=== PATIENT | female | born 1990 | race Caucasian/White ===

== ENCOUNTER 2018-12-24 22:44 | Inpatient (IN) | payer OTHER ==
[~2018-12-24] VITALS: Ht 162.6 cm; Wt 76.7 kg
[2018-12-24] MEDS ORDERED: OXYTOCIN 30 UNITS/LACT RINGERS 500 ML IV PRN (23:25)
[2018-12-24] MEDS ORDERED: OXYTOCIN 30 UNITS/LACT RINGERS 500 ML IV ONE (23:25)
[2018-12-24] MEDS ORDERED: RINGERS SOLUTION,LACTATED 1,000 ML IV PRN (23:25)
[2018-12-24] MEDS ORDERED: METOCLOPRAMIDE HCL 5 MG/ML 2 ML VIAL IVP PRN (23:30)
[2018-12-24] MEDS ORDERED: FentaNYL CITRATE-PF 100 MCG/2 ML VIAL IVP PRN (23:30)
[2018-12-24] MEDS ORDERED: CITRIC ACID/SODIUM CITRATE 30 ML SOLUTION UDCUP PO PRN (23:30)
[2018-12-24 23:55] VITALS: BP 121/74
[2018-12-25 00:08] LABS: BASOPHILS % (AUTO) 0.2 % (0.0-2.0); EOSINOPHILS % (AUTO) 1.4 % (1.0-6.0); HEMOGLOBIN 11.2 g/dL (12.0-16.0); LYMPHOCYTES # (AUTO) 2.3 K/uL (1.0-4.8); LYMPHOCYTES % (AUTO) 28.6 % (22.0-44.0); MEAN CORPUSCULAR HEMOGLOBIN 29.7 pg (26.0-34.0); MEAN CORPUSCULAR HGB CONC 33.9 G/dL (31.0-37.0); MEAN CORPUSCULAR VOLUME 88 fL (80-100); MONOCYTES % (AUTO) 12.1 % (2.0-9.0); NEUTROPHILS # (AUTO) 4.7 K/uL (1.8-7.7); NEUTROPHILS % (AUTO) 57.7 % (40.0-70.0); PLATELET COUNT (AUTO)-OB 176 K/uL (150-450); RED BLOOD CELL COUNT(AUTO) 3.76 MIL/uL (4.00-5.20); RED CELL DISTRIBUTION WIDTH 14.6 % (11.5-14.5)
[2018-12-25] MEDS ORDERED: calcium supplement PO (00:15)
[2018-12-25] MEDS ORDERED: PNV1TABL54 PO (00:15)
[2018-12-25] MEDS: RINGERS SOLUTION,LACTATED 1,000 ML IV SCH ×4 (00:32→17:48)
[2018-12-25] MEDS ORDERED: OXYGEN THERAPY IH SCH (08:00)
[2018-12-25] MEDS ORDERED: MINERAL OIL/PETROLAT,WHT/WATER LOTION 177 ML BOTTLE TP ONE (12:45)
[2018-12-25] MEDS ORDERED: MINERAL OIL 30 ML UDCUP VG ONE (12:45)
[2018-12-25] MEDS ORDERED: ROPIVACAINE HCL/PF 0.2% 100 ML ED ONE ×2 (15:16→16:50)
[2018-12-25] MEDS ORDERED: BUPIVACAINE HCL/PF 0.25% 10 ML VIAL ONE (15:16)
[2018-12-25] MEDS ORDERED: LIDOCAINE/PF 2% 5 ML VIAL ONE (16:50)
[2018-12-25] MEDS ORDERED: ROPIVACAINE HCL/PF 0.2% 100 ML ED PRN (17:15)
[2018-12-25] MEDS ORDERED: DiphenhydrAMINE HCL 50 MG/ML VIAL IVP PRN (17:15)
[2018-12-25] MEDS ORDERED: NALBUPHINE HCL 10 MG/ML VIAL IVP PRN (17:15)
[2018-12-25] MEDS ORDERED: ONDANSETRON HCL 4 MG/2 ML VIAL IVP PRN (17:15)
[2018-12-25] MEDS ORDERED: MISOPROSTOL 100 MCG TABLET ONE (21:46)
[2018-12-25] MEDS ORDERED: RINGERS SOLUTION,LACTATED 1,000 ML IV ONE (21:56)
[2018-12-25] MEDS ORDERED: OxyCODONE HCL/ACETAMINOPHEN 5-325 MG TABLET PO PRN ×2 (22:00)
[2018-12-25] MEDS ORDERED: BENZOCAINE 20%/MENTHOL 56 GM SPRAY CANISTER TP PRN (22:00)
[2018-12-25] MEDS ORDERED: GLYCERIN/WITCH HAZEL LEAF 40 PADS JAR TP PRN (22:00)
[2018-12-25] MEDS ORDERED: LANOLIN 7 GM OINTMENT TP PRN (22:00)
[2018-12-25] MEDS ORDERED: MEASLES/MUMPS/RUBELLA VACCINE, LIVE 0.5 ML/VIAL SQ ONE (22:00)
[2018-12-25] MEDS: IBUPROFEN 600 MG TABLET PO PRN (23:03)
[2018-12-26] MEDS: MAGNESIUM HYDROXIDE SUSPENSION 30 ML UDCUP PO SCH ×2 (08:42→22:03)
[2018-12-26] MEDS ORDERED: SODIUM CHLORIDE 0.9% 1,000 ML IV ONE ×2 (12:15→12:19)
[2018-12-26] MEDS: IBUPROFEN 600 MG TABLET PO PRN ×2 (13:43→20:10)
[2018-12-27] MEDS ORDERED: IBUP-2071 PO (09:52)
[2018-12-27] MEDS ORDERED: DSS100 PO (09:53)
[2018-12-27] MEDS ORDERED: FERR-89 PO (09:54)
== END 2018-12-27 11:05 | disposition home or self-care (01) | DRG 807 ==
LOC: 4S 22:44 → OBSVTOIN 22:44
PROVIDERS: ADMIT Obstetrics & Gynecology; ATTEND Obstetrics & Gynecology
PROC: 10E0XZZ Delivery of Products of Conception, External Approach (ICD-10-PCS; principal; 2018-12-25)
PROC: 0KQM0ZZ Repair Perineum Muscle, Open Approach (ICD-10-PCS; 2018-12-25)
PROC: 3E0R3BZ Introduction of Anesthetic Agent into Spinal Canal, Percutaneous Approach (ICD-10-PCS; 2018-12-25)
PROC: 00HU33Z Insertion of Infusion Device into Spinal Canal, Percutaneous Approach (ICD-10-PCS; 2018-12-25)
DX: O69.81X0 Labor and delivery complicated by cord around neck, without compression, not applicable or unspecified (principal); O70.1 Second degree perineal laceration during delivery; Z37.0 Single live birth; Z3A.39 39 weeks gestation of pregnancy
CPT/HCPCS: 86850; 86900; 86901; J2590; J2795; J3490; J7030; J7120